=== PATIENT | female | born 1995 | race Two or more races ===

== ENCOUNTER 2018-11-21 08:38 | Emergency (ER) | payer MEDICAID ==
[~2018-11-21] VITALS: Ht 149.9 cm; Wt 61.2 kg
[~2018-11-21 08:38] MED LIST: CYCLOBENZAPRINE10 MG ORAL; IBUPROFEN600 MG ORAL
[2018-11-21 08:50] VITALS: BP 116/76
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
[2018-11-21] MEDS ORDERED: Ketorolac 60mg Inj IM ONE (09:45)
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
[2018-11-21] MEDS ORDERED: CYCLOBENZAPRINE10 MG ORAL (11:34)
[2018-11-21] MEDS ORDERED: IBUPROFEN800 MG ORAL (11:34)
[2018-11-21 11:40] VITALS: BP 115/72
--- NOTE | 2018-11-21 11:42 | NUR ---
ED Nurse Note: PT LAYING PEACEFULLY IN BED IN NAD. AOX4. PRESCRIPTIONS AND DISCHARGE PAPERWORK EXPLAINED TO PT. PT VERBALIZES UNDERSTANDING AND DENIES ANY QUESTIONS AT THIS TIME. PRESCRIPTIONS AND DISCHARGE PAPERWORK GIVEN TO PT AND ID WRISTBAND REMOVED. PT WALKED OUT OF ER WITH STEADY GAIT AND ALL BELONGINGS.
--- NOTE | 2018-11-21 12:27 | Diagnostic Imaging Report ---
Indication: Elbow trauma and pain Findings: 3 views of the left elbow were obtained. No acute fractures, malalignment, erosions or periostitis are identified. Soft tissues are unremarkable. Impression: No acute injury
== END 2018-11-21 11:42 | disposition home or self-care (01) ==
LOC: EMR 09:50
DX: S13.4XXA Sprain of ligaments of cervical spine, initial encounter (principal); S46.212A Strain of muscle, fascia and tendon of other parts of biceps, left arm, initial encounter; S60.212A Contusion of left wrist, initial encounter; V43.52XA Car driver injured in collision with other type car in traffic accident, initial encounter; Y92.410 Unspecified street and highway as the place of occurrence of the external cause
CPT/HCPCS: 81025; 96372; 99283